=== PATIENT | female | born 1975 | race Caucasian/White ===

== ENCOUNTER 2016-07-12 09:16 | Emergency (ER) | payer OTHER ==
[~2016-07-12] VITALS: Ht 154.9 cm; Wt 68.0 kg
--- NOTE | ~2016-07-12 | EKG ---
[place] [address] [facility] [place] [address] ELECTROCARDIOGRAM REPORT Name: TALIB SANTOSWAYNE Cassandra Room #: [facility]..#: [id number] Admission: Attend Phys: Discharge: Date of : 79 Report #: [id number] THIS REPORT FOR: //name// [facility] ED Test Date: 2016-07-12 Test Time: 09:20:05 Pat Name: DRE SANTOS Department: Room: Gender: F Sign Language Instructor: Cassandra ARNOLD : 1975 Requested By: Aminta Moody Order Number: [id number] MD: Jeramy Wolfe Measurements Intervals [place] Rate: 80 P: 54 MS: 108 QRS: 55 QRSD: 94 T: 41 QT: 346 QTc: 400 Interpretive Statements Sinus rhythm Short MS interval No previous ECG available for comparison Electronically Signed On 07-12-2016 9:41:24 CDT by Jeramy Wolfe [email or web address] <ELECTRONICALLY SIGNED> By: Jeramy Wolfe MD, [facility] 07/12/16 0941 0920 0920 Jeramy Wolfe MD, FACC /EPI
[~2016-07-12 09:16] MED LIST: B12; BIOTIN; MULTI VITAMIN1 EACH; ZANTAC 150MG T150 M1 PO
[2016-07-12 09:51] LABS: HEMOGLOBIN 14.7 gm/dL (12.0-15.0); MCH 31.8 pg (26.0-34.0); MCV 90.8 fL (80.0-100.0); RBC 4.63 mil/uL (4.20-5.00); RDW 13.2 % (10.5-14.5); WBC 10.3 thou/uL (4.0-11.0)
[2016-07-12] MEDS ORDERED: ALLEGRA ALLERG180 MG PO (10:02)
[2016-07-12 10:10] LABS: ALBUMIN 3.8 g/dL (3.4-5.0); ALKALINE PHOSPHATASE 95 U/L (46-116); ANION GAP 14 mmol/L (7-16); BUN 10 mg/dL (7-18); CALCIUM 9.1 mg/dL (8.5-10.1); CHLORIDE 102 mmol/L (98-107); CO2 21 mmol/L (21-32); CREATININE 0.8 mg/dL (0.6-1.0); GLUCOSE 118 mg/dL (74-106); POTASSIUM 3.9 mmol/L (3.5-5.1); SGOT 14 U/L (15-37); SGPT 20 U/L (30-65); SODIUM 137 mmol/L (136-145); TOTAL BILIRUBIN 0.4 mg/dL (<0.1-1.0); TOTAL PROTEIN 7.6 g/dL (6.4-8.2); TROPONIN-I < 0.04 ng/mL (<0.04-0.07)
[2016-07-12] MEDS ORDERED: ATIVAN0.5 M1 PO (11:28)
[2016-07-12] MEDS ORDERED: PEPCID20 MG PO (11:37)
[2016-07-12 11:46] VITALS: BP 121/77
== END 2016-07-12 11:46 | disposition home or self-care (01) ==
LOC: ER 09:16
PROVIDERS: Physician Assistant
DX: R42 Dizziness and giddiness (principal); R07.9 Chest pain, unspecified; F17.210 Nicotine dependence, cigarettes, uncomplicated; F41.9 Anxiety disorder, unspecified; Z71.6 Tobacco abuse counseling; Z91.013 Allergy to seafood